=== PATIENT | female | born 1985 | race Caucasian/White ===

== ENCOUNTER 2017-01-17 01:51 | Inpatient (IN) ==
[2017-01-17] MEDS ORDERED: NS 1,000 ML IV ONE (02:19)
[2017-01-17] MEDS ORDERED: NS 1,000 ML ONE ×3 (02:28→12:35)
[2017-01-17] MEDS ORDERED: OFIRMEV 1000 MG/ISOTONIC SOLN 1,000 MG/100 ML BOTTLE IV SCH (02:30)
[2017-01-17 02:41] LABS: BASO% 0.1 % (0.0-0.8); EOS# 0.01 X1000 (0.0-0.7); EOS% 0.1 % (0.0-10.0); HEMATOCRIT 34.3 % (37.0-47.0); IMM GRAN# 0.06 X1000 (0.0-0.04); IMM GRAN% 0.3 % (0.0-0.5); LYMPH# 0.75 X1000 (1.2-3.4); LYMPH% 4.2 % (20.5-51.1); MANUAL DIFF NEEDED? YES; MCH 30.5 PG (27-31); MCV 87.1 FL (81-99); MONO# 0.69 X1000 (0.11-0.59); MONO% 3.9 % (1.7-9.3); MPV 9.6 FL (7.4-10.4); NEUT% 91.4 % (42.2-75.2); PLT 366 X1000 (130-400); RBC 3.94 XMIL (4.2-5.4)
[2017-01-17 02:55] LABS: BILIRUBIN URINE NEGATIVE (NEGATIVE); BLOOD URINE 4+ (NEGATIVE); CLARITY HAZY (CLEAR); COLOR YELLOW; GLUCOSE URINE NEGATIVE (NEGATIVE); LEUKOCYTES URINE 2+ (NEGATIVE); NITRITE URINE NEGATIVE (NEGATIVE); PROTEIN URINE TRACE mg/dL (NEGATIVE); UROBILINOGEN URINE NORMAL
[2017-01-17 02:57] LABS: URINE CULTURE PL NEEDED? YES; URINE EPITHELIAL CELLS <10 /HPF (<10); URINE RBC <10 /HPF (<10); URINE SOURCE CLEAN CATCH; URINE WBC <10 /HPF (<10)
[2017-01-17 03:01] LABS: GOT 22 U/L (10-30)
[2017-01-17 03:05] LABS: BANDS 1 % (0-1); LYMPHS 5 % (21-51); MONO 1 % (1-9)
[2017-01-17 03:15] LABS: AGAP 11; ALBUMIN 4.1 g/dL (3.5-5.0); ALKALINE PHOSPHATASE 96 U/L (32-104); BUN 10 mg/dL (8-22); CALCIUM 8.6 mg/dL (8.8-10.2); CHLORIDE 104 mmol/L (98-107); COSMO 274; GPT 35 U/L (10-36); POTASSIUM 3.8 mmol/L (3.5-5.1); SODIUM 135 mmol/L (136-145); TCO2 21 mmol/L (25-35)
[2017-01-17] MEDS ORDERED: LEVAQUIN 500 MG/D5W 500 MG/100 ML IVPB IV ONE (04:40)
[2017-01-17] MEDS ORDERED: MORPHINE IV ONE (04:45)
[2017-01-17] MEDS ORDERED: ZOFRAN IV ONE (04:45)
--- NOTE | 2017-01-17 09:54 | HISTORY AND PHYSICAL ---
DIAGNOSIS: , with adnexal mass and uterine debris. CONDITION: Stable. HISTORY OF PRESENT ILLNESS: Ms. Andrade is a 31-year-old, 2, para 1, with last menstrual period beginning on 12/11. She states having a long history of regular monthly periods. When she had not had a period on 01/11, she took a test. It was positive. Over the next few days, she had increasing abdominal pain, such that on the , she presented to the emergency room at [facility] with severe abdominal pain. She was evaluated. Ultrasound was done. Labs were done. She was discharged with possible threatened AB versus ectopic, and given precautions. While at home on the , before she went home at 1 a.m. on the morning of , in the afternoon she had increasing pain in the lower abdomen, such that she presented back to the hospital, at which point she was admitted. PAST MEDICAL HISTORY: Nonsignificant. PAST SURGICAL HISTORY: Negative. MEDICATIONS: She is on no medications. ALLERGIES: She is allergic to penicillin. She states as a child she took it and she had a rash. HISTORY: She had one previous vaginal delivery, 6 pounds 9 ounces, induced at 38 weeks. SOCIAL HISTORY: She has a long history of tobacco use. She smoked 1 pack per day from 16 to age 30. Since , she has been vaping. She uses 6 nicotine packs a day. FAMILY HISTORY: Significant for heart disease in her mother, who has had heart attacks, pacemaker, and open-heart surgery. LABORATORY VALUES: White count of 17, hemoglobin and hematocrit 12/34, platelets 366,000. Chemistry shows she is slightly dehydrated at 21. Glucose is high at 180, I do not feel it was fasting. Total bilirubin is high at 1.5. No breakdown of direct and indirect. Liver functions appear normal. test 5278. Urine negative. Ultrasound reveals a small anechoic area in the uterine fundus, approximately 1 cm. The uterus is full of debris. The adnexa revealed an adnexal mass on the left side, with free fluid. I should note that patient has gone from spotting on Wednesday to bleeding like a period today, although she is not passing any clots. ASSESSMENT AND PLAN: , with intrauterine hypoechoic area and debris, and an adnexal mass with free fluid. Will proceed with a diagnostic laparoscopy, possible salpingectomy, oophorectomy, and a D C. cc: Kaz Salamanca MD
[2017-01-17] MEDS ORDERED: DIPRIVAN 1% ONE (10:13)
[2017-01-17] MEDS ORDERED: FENTANYL ONE (10:13)
[2017-01-17] MEDS ORDERED: VERSED ONE (10:13)
[2017-01-17] MEDS ORDERED: XYLOCAINE-MPF 2% ONE (10:17)
[2017-01-17] MEDS ORDERED: QUELICIN (DOSE) ONE (10:17)
[2017-01-17] MEDS ORDERED: MARCAINE 0.25% PF/EPI 1:200,000 ONE (10:54)
[2017-01-17] MEDS ORDERED: LR 1,000 ML ONE ×3 (10:54→12:35)
--- NOTE | 2017-01-17 11:06 | Diag Imaging Result Doc PS360 ---
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 TECHNIQUE: COMPARISON: 01/15/2017 FINDINGS: Note that there was a positive test. The quantitative hCG is 5278.0, which would indicate a of 5-6 weeks. 2 days ago, the quantitative hCG was 8697.0. There is a 4 mm cystic uterine focus that is nonspecific. There is also abnormal heterogeneous fluid in the uterine cavity that is indeterminate but could represent blood products. No pole or yolk sac is identified in the uterus. There is moderate free fluid in the pelvis that has increased during the interval and it appears complex. There is now a complex left adnexal mass measuring 5.1 x 5.3 x 5.0 cm. The right ovary is unremarkable. IMPRESSION: 1.No normal intrauterine gestation is identified. 2.Complex fluid in the endometrial cavity as described. 3.Increasing complex fluid layering in the cul-de-sac. 4.Complex left adnexal mass suspicious for ectopic . Electronically signed by Kaz Hammonds 01/17/2017 11:03 AM
[2017-01-17] MEDS ORDERED: MORPHINE ONE ×2 (11:11→11:51)
[2017-01-17] MEDS ORDERED: NEOSTIGMINE ONE (11:50)
[2017-01-17] MEDS ORDERED: ROBINUL ONE (11:50)
[2017-01-17] MEDS ORDERED: NEO-SYNEPHRINE ONE (12:05)
[2017-01-17] MEDS ORDERED: SODIUM CHLORIDE 0.9% 10 ML ONE (12:05)
[2017-01-17] MEDS ORDERED: PERCOCET-5 PO PRN (12:22)
[2017-01-17] MEDS: DILAUDID ONE ×3 (12:30→12:42)
[2017-01-17 16:11] VITALS: BP 115/65
--- NOTE | 2017-01-17 17:50 | OPERATIVE NOTE ---
PROCEDURE DATE: 01/17/2017 PREOP DIAGNOSIS: Adnexal mass, . POSTOP DIAGNOSIS: Left ectopic. PROCEDURES: Laparoscopic left salpingo-oophorectomy, biopsy of uterus and dilatation and curettage. PHYSICIAN: Dr. Kaz Salamanca. ANESTHESIA: General endotracheal. FINDING: She had hemoperitoneum, large blood clot coming off the end of the left tube and some what appeared to be related growth around the corneal region of the left tube and the tube was adhesed to the ovary. D and C: No real tissue was noted, just blood clots. ESTIMATED BLOOD LOSS: 200 mL. DESCRIPTION: Ms. Andrade is 31-year-old G2, P1, who was admitted with the above diagnoses. Please see H and P. She was placed under general endotracheal anesthesia, prepped and draped in dorsal lithotomy position. The infraumbilical area was anesthetized with 0.25% Marcaine with epinephrine. Incision made. Trocar placed into the abdomen. Abdomen insufflated with CO2. She was placed in steep Trendelenburg. Due to the hemoperitoneum, a trocar was placed on the right side and then on the left side, a 5 mm and a 10 mm on the left. Using manipulators, graspers and the LigaSure, the left tube and ovary were grasped, cauterized, and pedicles were cut and this was detached. Then a section of the cornual region of the left uterine horn was dissected off with the LigaSure. After this was done, good hemostasis was noted. The specimens were placed in bags and then removed. Irrigation was done. No abnormalities were noted. No bleeding was noted, so trocars were removed. CO2 was released. Before the 10 mm trocars at the umbilicus on the left side were removed, Artur-Milton wound closure was used to close the fascia. The fascia was closed at all 3 sites with 4-0 Polysorb. Attention was turned to the D and C. Weighted speculum was placed. Bladder was drained. The cervix was grasped, dilated up with Hegar dilators, and then a #8 suction catheter. Whatever was in the uterus was suctioned out. It appeared to be mostly clots. After this was done, very little bleeding was noted. The cervix was released. The speculum was removed. She was taken out of dorsal lithotomy, awakened and taken to the recovery room in stable condition. Deyvi#: [id number] cc: Kaz Salamanca MD
--- NOTE | 2017-01-25 12:25 | PROVIDER DOCUMENTATION ---
This chart was entered by Maria Guadalupe Wise Scribe, acting as scribe for Juancarlos Gar MD. HPI-Abdominal Pain/GI Problem - General Chief Complaint: Abdominal Pain Stated Complaint: ABD PAIN-EARLY Time Seen by Provider: 01/17/17 01:55 Source: patient Allergies/Adverse Reactions: Patient Allergies Allergy/AdvReac Type Severity Reaction Status Date / Time Penicillins Allergy Unknown Verified 01/17/17 02:05 Home Medications: Home Medication List Medication Instructions Recorded Confirmed Last Taken Type Oxycodone/APAP 5 mg/325 mg 1 each PO Q4H PRN PRN #30 tablet 01/17/17 Unknown Rx [Percocet-5] - History of Present Illness-ABD Nature of Presenting Problems: 31 Y/O F presents to ER with the complain of abd pain. pt states that she took test X2 weeks and they were positive. pt states that she was seen at the [facility] last night for same problem and was done test there and was positive as well. pt states that she is spotting today. Abdominal Pain Onset Location: reports: suprapubic Pain Radiation: reports: no radiation Severity in ED: reports: moderate Onset/Duration: reports: this morning Timing: reports: still present Activities at Onset: reports: none Exposure to sick contacts?: No Review of Systems - Adult - REVIEW OF SYSTEMS - ADULT Constitutional: reports: no symptoms reported Eyes: reports: no symptoms reported Ears, Nose, Mouth & Throat: reports: no symptoms reported Cardiovascular: reports: no symptoms reported Respiratory: reports: no symptoms reported Gastrointestinal: reports: abdominal pain (lower). denies: diarrhea, nausea, vomiting Genitourinary: reports: see HPI, other (vaginal spotting) Musculoskeletal: reports: no symptoms reported Integumentary: reports: no symptoms reported Neurological: reports: no symptoms reported Psychiatric: reports: no symptoms reported Endocrine: reports: no symptoms reported Hematologic/Lymphatic: reports: no symptoms reported Allergic/Immunologic: reports: no symptoms reported All Other Systems: Reviewed and Negative Past History - Adult - PAST MEDICAL HISTORY-ADULT Review of Records: reports: Old Records Reviewed, Nursing Assessment Review Cardiovascular: reports: denies history Respiratory: reports: denies history Gastrointestinal: reports: denies history Obstetrical/Gynecological: reports: other (see HPI) Musculoskeletal: reports: denies history Neurological: reports: denies history Psychiatric: reports: denies history Endocrine/Immune: reports: denies history - PRIOR SURGERIES/PROCEDURES Surgical/Procedure History: reports: none - IMMUNIZATION STATUS Childhood Immunizations: See Nurse Assessment Flu Vaccine: See Nurse Assessment - FAMILY HISTORY Family History: reviewed, not pertinent - SOCIAL HISTORY Smoking: other (vapor) Provider spent 3-5 mins advising pt. on dangers of tobacco.: Discussed manners to quit use, and f/u contacts for add'l counseling. Physical Exam-General - PHYSICAL EXAM-ADULT Initial Vital Signs Reviewed: Yes - CONSTITUTIONAL General Appearance: appears well, alert - EYES Eyes: PERRL/EOMI, pink conjunctivae - HEAD, EARS, NOSE, MOUTH & THROAT HENMT: moist mucous membranes, normal ENT inspection - NECK Neck: non-tender, full range of motion, supple - RESPIRATORY Respiratory: chest non-tender, lungs clear, normal breath sounds - CARDIOVASCULAR Cardiovascular: normal peripheral pulses, regular rate, rhythm - GASTROINTESTINAL (ABDOMEN) Abdominal Exam: normal bowel sounds, soft, tenderness (lower abd) - MUSCULOSKELETAL Back Exam: normal inspection, no CVA tenderness, no vertebral tenderness Extremity: normal range of motion, non-tender, normal gait - SKIN Integumentary: normal color, normal turgor, warm/dry - NEUROLOGIC Neurologic: grossly normal, no motor/sensory deficits - PSYCHIATRIC Psych/Mental Status: normal mood/affect, normal thought content, normal thought process, oriented x 3 Progress - PLAN OF CARE/RESULTS Progress/Plan/Lab Results: Vital Signs - 8 hr 01/17/17 02:00 Temperature 97.9 F Pulse Rate 111 H Respiratory Rate 20 Blood Pressure 136/68 O2 Sat by Pulse Oximetry 99 Orders Category Date Time Status TEST-URINE [PREG] Stat Lab 01/17/17 02:13 Ordered urinalysis [URINALYSIS PL W/POSS RFLX CULT] [URINALYSIS Lab 01/17/17 02:13 Ordered ] Stat Result Diagrams: 01/17/17 02:25 01/17/17 02:25 Departure - Departure Date of Disposition Decision: 01/17/17 Time of Disposition Decision: 09:00 DIAGNOSIS: Ectopic , tubal Disposition: HOME 01 Certified Medical Emergency: Emergent Condition: Stable - Critical Care Note This patient required my direct & personal management of CC.: No Attestation - Physician/ KERRY Attestation The physician spent face to face time with patient:: Yes Advanced Practice Provider documentation review:: Supervising physician onsite and consulted in the evaluation and care of this patient. The physician did have a face to face encounter with the patient. This chart was documented by the indicated scribe, (Maria Guadalupe Wise Scribe) and accurately reflects the services I performed and decisions made by me, Juancarlos Gar MD, as attested by the provider's signature.
== END 2017-01-17 17:35 | disposition home or self-care (01) ==
LOC: P.ED 01:51 → P.WC 07:07
PROVIDERS: ADMIT Obstetrics & Gynecology; ATTEND Obstetrics & Gynecology